=== PATIENT | female | born 1940 | race Caucasian/White ===

== ENCOUNTER 2017-10-28 09:57 | Outpatient (CLI) | payer MEDICARE | END 2017-10-28 09:58 | disposition home or self-care (01) | LOC: BICMAMMO 09:57 | PROVIDERS: ATTEND Neurological Surgery | DX: Z12.31 Encounter for screening mammogram for malignant neoplasm of breast (principal) | CPT/HCPCS: 77067 ==

== ENCOUNTER 2018-07-12 14:25 | Outpatient (CLI) | payer MEDICARE ==
--- NOTE | 2018-07-12 16:18 | RAD ---
2 VIEWS LEFT HIP: Date: 07/12/18 HISTORY: Degenerative joint disease left hip. Patient states sciatic pain on the left. COMPARISON: None available. FINDINGS: There is no fracture or dislocation involving the left hip. Minimal left hip osteoarthritis is presen t. There is partial visualization of postsurgical change involving the lower lumbar spine. Vascular c alcifications are seen in left iliac and femoral arteries with phleboliths overlying the pelvis. IMPRESSION: No acute osseous abnormality of the left hip. POS: [facility]
--- NOTE | 2018-07-12 16:23 | RAD ---
2 VIEWS RIGHT HIP: Date: 07/12/18 HISTORY: Degenerative joint disease of bilateral hips. Sciatic type pain. FINDINGS: No fracture or dislocation involving the right hip. Vascular calcifications are seen in the right allan ac and femoral arteries. Postsurgical changes are partially imaged involving the lower lumbar spine. IMPRESSION: No acute osseous abnormality right hip. POS: [facility]
--- NOTE | 2018-07-12 16:41 | RAD ---
LUMBAR SPINE SERIES FOUR VIEWS: INDICATIONS: Degenerative joint disease of hip. Low back pain. FINDINGS: There is posterior metallic fusion of L4-L5 with bilateral pedicle screws and bilateral vertical inte rconnecting rods, as well as an intervening disk space prosthesis. There is dextroscoliosis centered at the lower lumbar spine and accentuation of lumbar lordosis. Grade I spondylolisthesis is present at L3-L4 and at L4-L5. No evidence of an acute compression fracture. There is multilevel endplate degenerative change and facet sclerosis. IMPRESSION: 1. 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 2. No definite acute compression fracture. Evaluation of flexion and extension views reveals no obvious translational motion. POS: [facility]
== END 2018-07-12 14:26 | disposition home or self-care (01) ==
LOC: BICRAD 14:25
PROVIDERS: ATTEND Obstetrics & Gynecology
DX: M16.0 Bilateral primary osteoarthritis of hip (principal); M47.816 Spondylosis without myelopathy or radiculopathy, lumbar region; M41.9 Scoliosis, unspecified; Z98.1 Arthrodesis status
CPT/HCPCS: 72120